=== PATIENT | female | born 1975 | race Hispanic/Latino ===

== ENCOUNTER 2017-10-05 03:16 | Emergency (ER) | payer OTHER ==
[2017-10-05 03:16] VITALS: BMI 25.0
[2017-10-05 03:43] VITALS: TEMP 98.2
[2017-10-05] MEDS ORDERED: Sodium Chloride 0.9% 1,000 ML IV SCH (03:45)
--- NOTE | 2017-10-05 03:54 | ED PDOC ---
Arrival/HPI - General Chief Complaint: GI Problem Time Seen by Provider: 10/05/17 03:36 Historian: Patient - History of Present Illness Narrative History of Present Illness (Text): 10/05/17 03:52 42 year old female presents to the Emergency department complaining of nausea and vomiting for 2 days. Patient is . Patient was evaluated at [facility] for the same symptoms and was given a prescription that did not help. At this time patient is requesting fluids and Reglan. Patient denies any fever, chills, chest pain, shortness of breath, diarrhea, urinary symptoms, back pain, neck pain, headache, dizziness, or any other complaints. Time/Duration: < week (2 days ago) Symptom Onset: Gradual Symptom Course: Unchanged Context: Home Past Medical History - Provider Review Nursing Documentation Reviewed: Yes - Infectious Disease Hx of Infectious Diseases: None - Past Medical History Past Medical History: No Previous - Genitourinary/Gynecological Hx Genitourinary Disorders: Yes Other/Comment: ectopic pregnancies - Psychiatric Hx Depression: No Hx Emotional Abuse: No Hx Physical Abuse: No Hx Substance Use: No - Past Surgical History Past Surgical History: No Previous - Suicidal Assessment Feels Threatened In Home Enviroment: No Family/Social History - Physician Review Nursing Documentation Reviewed: Yes Family/Social History: Unknown Family HX Smoking Status: Never Smoked Hx Alcohol Use: No Hx Substance Use: No Hx Substance Use Treatment: No Allergies/Home Meds Allergies/Adverse Reactions: Allergies No Known Allergies Allergy (Verified 03/19/14 21:16) Home Medications: Home Meds Medication Instructions Recorded Confirmed No Known Home Med 10/05/17 10/05/17 Review of Systems - Physician Review All systems were reviewed & negative as marked: Yes - Review of Systems Constitutional: absent: Fevers, Night Sweats Respiratory: absent: SOB Cardiovascular: absent: Chest Pain Gastrointestinal: Nausea, Vomiting. absent: Diarrhea Genitourinary Female: absent: Dysuria Musculoskeletal: absent: Back Pain, Neck Pain Neurological: absent: Headache, Dizziness Physical Exam Vital Signs Reviewed: Yes Vital Signs Temp Pulse Resp BP Pulse Ox 10/05/17 05:39 62 17 122/67 99 10/05/17 03:42 98.2 F 65 18 101/62 100 Temperature: Afebrile Blood Pressure: Normal Pulse: Regular Respiratory Rate: Normal Appearance: Positive for: Well-Appearing, Non-Toxic, Comfortable Pain Distress: None Mental Status: Positive for: Alert and Oriented X 3 - Systems Exam Head: Present: Atraumatic, Normocephalic Pupils: Present: PERRL Extroacular Muscles: Present: EOMI Conjunctiva: Present: Normal Mouth: Present: Moist Mucous Membranes Neck: Present: Normal Range of Motion Respiratory/Chest: Present: Clear to Auscultation, Good Air Exchange. No: Respiratory Distress, Accessory Muscle Use Cardiovascular: Present: Regular Rate and Rhythm, Normal S1, S2. No: Murmurs Abdomen: No: Tenderness, Distention, Peritoneal Signs Back: Present: Normal Inspection Upper Extremity: Present: Normal Inspection. No: Cyanosis, Edema Lower Extremity: Present: Normal Inspection. No: Edema Neurological: Present: GCS=15, CN II-XII Intact, Speech Normal Skin: Present: Warm, Dry, Normal Color. No: Rashes Psychiatric: Present: Alert, Oriented x 3, Normal Insight, Normal Concentration Medical Decision Making ED Course and Treatment: 10/05/17 03:55 Impression: 42 year old female presents to the Emergency department complaining of nausea and vomiting. Plan: -- Reglan and Sodium Chloride IV fluids -- Reassess and disposition Progress Notes: - Medication Orders Current Medication Orders: Discontinued Medications Sodium Chloride (Sodium Chloride 0.9%) 1,000 mls @ 1,000 mls/hr IV .Q1H CLAUDETTE Last Admin: 10/05/17 03:50 Dose: 1,000 mls/hr eMAR Start Stop Document 10/05/17 03:50 RD (Rec: 10/05/17 03:51 RD [id number]) Intravenous Solution Start Date 10/05/17 Start Time 03:51 End Date 10/05/17 End time 04:51 Total Infusion Time 60 Metoclopramide HCl (Reglan) 10 mg IVP ONCE ONE Stop: 10/05/17 03:42 Last Admin: 10/05/17 03:50 Dose: 10 mg IVP Administration Document 10/05/17 03:50 RD (Rec: 10/05/17 03:50 RD [id number]) Charges for Administration # of IVP Administrations 1 - Scribe Statement The provider has reviewed the documentation as recorded by the Gloria Gonzalez Provider Scribe Attestation: All medical record entries made by the Scribe were at my direction and personally dictated by me. I have reviewed the chart and agree that the record accurately reflects my personal performance of the history, physical exam, medical decision making, and the department course for this patient. I have also personally directed, reviewed, and agree with the discharge instructions and disposition. Disposition/Present on Arrival - Present on Arrival Any Indicators Present on Arrival: No History of DVT/PE: No History of Uncontrolled Diabetes: No Urinary Catheter: No History of Decub. Ulcer: No History Surgical Site Infection Following: None - Disposition Have Diagnosis and Disposition been Completed?: Yes Diagnosis: Hyperemesis gravidarum Disposition: HOME/ ROUTINE Disposition Time: 06:00 Condition: IMPROVED Discharge Instructions (ExitCare): Hyperemesis Gravidarum Forms: [employer] ([place])
[2017-10-05 05:40] VITALS: BP 122/67; PULSE 62; RESP 17; O2SAT 99
== END 2017-10-05 05:39 | disposition home or self-care (01) ==
LOC: ED 03:16
DX: O21.0 Mild hyperemesis gravidarum (principal); Z3A.00 Weeks of gestation of pregnancy not specified
CPT/HCPCS: 96361; 96374; 99284; J2765; J7030